=== PATIENT | female | born 1965 | race Caucasian/White ===

== ENCOUNTER 2017-11-09 11:07 | Inpatient (IN) | payer SELFPAY ==
[2017-11-09 11:52] LABS: #Basophils 0.1 thou/uL (0.0-0.2); #Eosinphils 0.2 thou/uL (0.0-0.7); #Lymphocytes 2.8 thou/uL (1.20-3.40); #Monocytes 0.7 thou/uL (0.11-0.59); #Neutrophils 9.8 thou/uL (1.40-6.50); %Basophils 0.6 % (0.0-1.0); %Eosinophils 1.6 % (0.0-10.0); %Lymphocytes 20.4 % (21.0-51.0); %Monocytes 5.2 % (0.0-10.0); %Neutrophils 72.2 % (42.0-75.0); Hemoglobin 14.7 g/dL (12.0-16.0); Mean Corpuscular HGB CONC 33.6 g/dL (32.0-36.0); Mean Corpuscular Hemoglobin 28.2 pg (27.0-31.0); Mean Corpuscular Volume 83.9 fl (81.0-99.0); Mean Platelet Volume 8.1 fL (7.4-10.4); Platelet Count 491 thou/uL (130-400); RBC Distribution Width 11.7 % (11.5-14.5); Red Blood Cell (RBC) Count 5.21 mill/uL (4.20-5.40); White Blood Cell (WBC) Count 13.6 thou/uL (4.8-10.8)
[2017-11-09 11:54] LABS: Bilirubin Negative (Negative); Blood, Urine Negative (Negative); Clarity CLEAR (Clear); Glucose, Urine (Dipstick) 500 mg/dL (Negative); Leukocyte Small (Negative); Nitrite Negative (Negative); Protein, Urine (Dipstick) 30 mg/dL (Neg-Trace); Specific Gravity, Urine 1.021 (1.002-1.036); Urobilinogen 0.2 mg/dL (0.2-1.0); pH, Urine 5.5 (5.0-9.0)
[2017-11-09 11:55] LABS: Bacteria/HPF None Seen HPF (None Seen); Pathc Cast-AUWi Flag 2.03 (0-2.49); RBC/HPF 0-3 HPF (0-3)
[2017-11-09 12:08] LABS: ALT (SGPT) 14 U/L (8-55); AST (SGOT) 11 U/L (5-34); Albumin 3.5 g/dL (3.5-5.0); Alkaline Phosphatase 97 U/L (40-150); Anion Gap 18 mmol/L (10-20); BUN (Urea Nitrogen) 32 mg/dL (9.8-20.1); Bilirubin, Total 0.3 mg/dL (0.2-1.2); Calc. Creatinine Clearance 0 mL/min (70-130); Carbon Dioxide 15 mmol/L (22-29); Chloride 101 mmol/L (98-107); Estimated GFR-MDRD 24; Globulin 3.5 g/dL (2.4-3.5); Glucose 376 mg/dL (70-105); Lipase 15 U/L (8-78); Potassium 3.8 mmol/L (3.5-5.1); Sodium 130 mmol/L (136-145)
[2017-11-09 12:21] LABS: Hyaline Casts/LPF 0-3 HYALINE CAST LPF (0-3 Hyaline)
[2017-11-09 12:22] LABS: Renal Epithelial 0-3 HPF (0-3); Transitional Epithelial 0-3 HPF (0-3)
[2017-11-09] MEDS ORDERED: Fentanyl 100 MCG/2 ML VIAL ONE ×2 (12:57→14:03)
[2017-11-09] MEDS ORDERED: Insulin Regular 300 UNITS/3 ML VIAL ONE (12:58)
--- NOTE | 2017-11-09 13:10 | CT ---
CT HEAD NONCONTRAST: Date: 11/09/17 HISTORY: Headache. FINDINGS: No comparison. There is no evidence of acute intracranial hemorrhage or infarct. The ventricles appear normal in siz e, shape, and position. There is no mass effect or shift of midline structures. Dense mucosal opacifi cation involves the right sphenoid sinus cell and posterior right ethmoid air cells. Some mucosal thi ckening is also evident within the superior portion of the partially visualized right maxillary sinus . Small amount of fluid layers within the dependent portion of the left sphenoid sinus cell. IMPRESSION: 1. No acute intracranial abnormalities are demonstrated on noncontrast CT head. 2. Paranasal sinusitis involving primarily the right sphenoid sinus and right ethmoid air cells. POS: [facility]
[2017-11-09 14:04] LABS: Base Excess-Venous -9.7 mmol/L (0 (+/- 2.5)); Bicarbonate (HCO3v) 18.2 mmol/L (1.0-85.0); CO2 Tension (PvCO2) 45.7 mmHg (41.0-51.0); Calcium, Ionized 1.14 mmol/L (1.12-1.32); Hemoglobin - Calc 17.7 g/dL (12.0-18.0); O2 Tension (PvO2) 27.6 mmHg (35.0-45.0); T. Carbon Dioxide 19.6 mmol/L (1.0-85.0); pH (Venous) 7.208 (7.35-7.45); vO2 Saturation-calc 39.6 % (94-98)
[2017-11-09] MEDS ORDERED: Ondansetron ODT 8 MG TAB ONE (14:16)
--- NOTE | 2017-11-09 14:38 | PDOC.FPRHP ---
- History of Present Illness Chief Complaint: N/V History of Present Illness: 52 y/o F with PMHx of DM2 presents with N/V, H/A and congestion. The patient reports that her congestion and headache have been going on for about 2 weeks and have been more R sided. The pain radiates to her R ear. She has noticed more sinus congestion. She started having N/V the past couple of days. She denies F/C. She normally checks her blood sugar and the fasting runs about 110- 150, but she reports that she hasn't been checking it as much since she's been sick, but she has still been taking her insulin. ED Course: The patient was evaluated in the ED by Dr. Dumas and was given 1g Rocephin, Novolin 10U, 1L NS, Fentanyl 100mcg. - Allergies/Adverse Reactions Allergies Allergy/AdvReac Type Severity Reaction Status Date / Time ciprofloxacin Allergy Severe Verified 11/09/17 15:27 Latex, Natural Rubber Allergy Severe Verified 11/09/17 15:27 levofloxacin [From Levaquin] Allergy Severe Verified 11/09/17 15:27 propofol Allergy Severe Verified 11/09/17 15:27 Quinolones Allergy Severe Verified 11/09/17 15:27 strawberry [[place]] Allergy Severe Verified 11/09/17 15:27 moxifloxacin [From Avelox] Allergy Verified 11/09/17 15:27 FIGS Allergy Severe Uncoded 06/17/13 16:46 - Home Medications Medication Instructions Recorded Confirmed Type Insulin NPH/Reg Insulin Hm 60 unit SC BID-AC 11/09/17 11/09/17 History [HumuLIN 70/30] Insulin Regular [HumuLIN R Vial] PRN 11/09/17 History Lisinopril 10 mg PO DAILY 11/09/17 11/09/17 History Metoprolol Tartrate 25 mg PO DAILY 11/09/17 11/09/17 History - History PMHx: 1. DM2 2. h/o DKA with diabetic coma 3. HTN PSHx: 1. Tracheostomy - has been removed FHx: DM2 in both parents Social: Denies tobacco, EtOH, or drug use - Review of Systems General: denies: fever/chills, weight/appetite/sleep changes Eyes: reports: eye pain (R eye due to sinus pressure). denies: vision changes ENT: reports: nasal congestion. denies: rhinorrhea Respiratory: denies: cough, shortness of breath Cardiovascular: denies: chest pain, edema Gastrointestinal: reports: nausea, vomiting, abdominal pain. denies: diarrhea Genitourinary: denies: dysuria, polyuria Skin: denies: rashes, lesions Musculoskeletal: denies: pain, tenderness Neurological: denies: numbness, weakness Psychological: denies: anxiety, depression - Vital signs BP: 110/68 HR: 77 RR: 17 Tmax: 97.5 Pox: 99% on RA Wt: 99.79kg - Physical Exam Constitutional: NAD, awake, alert and oriented, well developed HEENT: normocephalic and atraumatic, PERRLA, grossly normal vision, grossly normal hearing, normal nasal mucosa, MMM, oropharynx clear, other (sinus pain on R side) Neck: supple, FROM, no LAD Heart: RRR, normal S1/S2, no murmurs/rubs/gallops Lungs: CTAB, no respiratory distress, good air movement, no wheezing Abdomen: soft, non-tender, bowel sounds present Musculoskeletal: normal structure, normal tone Neurological: no focal deficit, CN II-XII intact Skin: good turgor, capillary refill <2 seconds Heme/Lymphatic: no unusual bruising or bleeding, no petechia Psychiatric: normal mood and affect, good judgment and insight FMR H&P: Results - Labs Result Diagrams: 11/09/17 11:33 11/09/17 11:33 Lab results: WBC 13.6 thou/uL (4.8-10.8) H 11/09/17 11:33 Hgb 14.7 g/dL (12.0-16.0) 11/09/17 11:33 Hct 43.7 % (36.0-47.0) 11/09/17 11:33 MCV 83.9 fl (81.0-99.0) 11/09/17 11:33 Plt Count 491 thou/uL (130-400) H 11/09/17 11:33 Neutrophils % 72.2 % (42.0-75.0) 11/09/17 11:33 VBG pCO2 45.7 mmHg (41.0-51.0) 11/09/17 14:00 VBG pO2 27.6 mmHg (35.0-45.0) L 11/09/17 14:00 Sodium 130 mmol/L (136-145) L 11/09/17 11:33 Potassium 3.8 mmol/L (3.5-5.1) 11/09/17 11:33 Chloride 101 mmol/L (98-107) 11/09/17 11:33 Carbon Dioxide 15 mmol/L (22-29) L 11/09/17 11:33 BUN 32 mg/dL (9.8-20.1) H 11/09/17 11:33 Creatinine 2.13 mg/dL (0.6-1.1) H 11/09/17 11:33 Glucose 376 mg/dL (70-105) H 11/09/17 11:33 Calcium 9.0 mg/dL (7.8-10.44) 11/09/17 11:33 Total Bilirubin 0.3 mg/dL (0.2-1.2) 11/09/17 11:33 AST 11 U/L (5-34) 11/09/17 11:33 ALT 14 U/L (8-55) 11/09/17 11:33 Alkaline Phosphatase 97 U/L (40-150) 11/09/17 11:33 Serum Total Protein 7.0 g/dL (6.0-8.3) 11/09/17 11:33 Albumin 3.5 g/dL (3.5-5.0) 11/09/17 11:33 Lipase 15 U/L (8-78) 11/09/17 11:33 Urine Ketones Negative mg/dL (Negative) 11/09/17 11:20 Urine Blood Negative (Negative) 11/09/17 11:20 Urine Nitrite Negative (Negative) 11/09/17 11:20 Ur Leukocyte Esterase Small (Negative) H 11/09/17 11:20 Urine RBC 0-3 HPF (0-3) 11/09/17 11:20 Urine WBC 11-20 HPF (0-3) H 11/09/17 11:20 Ur Squamous Epith Cells 11-20 HPF (0-3) H 11/09/17 11:20 Urine Bacteria None Seen HPF (None Seen) 11/09/17 11:20 - Radiology Interpretation CT scan - head Status: report reviewed by me Additional comment: R sided sinusitis FMR H&P: A/P - Problem List (1) Hyperosmolar non-ketotic state in patient with type 2 diabetes mellitus Current Visit: Yes Status: Acute Code(s): E11.01 - TYPE 2 DIABETES MELLITUS WITH HYPEROSMOLARITY WITH COMA (2) Sinusitis Current Visit: Yes Status: Acute Code(s): J32.9 - CHRONIC SINUSITIS, UNSPECIFIED Qualifiers: Sinusitis location: unspecified location Chronicity: acute Recurrence: non-recurrent Qualified Code(s): J01.90 - Acute sinusitis, unspecified (3) Lactic acidosis Current Visit: Yes Status: Acute Code(s): E87.2 - ACIDOSIS (4) Type 2 diabetes mellitus Current Visit: Yes Status: Acute Qualifiers: Diabetes mellitus terminal manager insulin use: with terminal manager use Diabetes mellitus complication status: with unspecified complications Qualified Code(s) : E11.8 - Type 2 diabetes mellitus with unspecified complications; Z79.4 - longterm (current) use of insulin; Z79.4 - longterm (current) use of insulin; Z79.4 - longterm (current) use of insulin; Z79.4 - terminal worker (current) use of insulin (5) MADI (acute kidney injury) Current Visit: Yes Status: Acute Code(s): N17.9 - ACUTE KIDNEY FAILURE, UNSPECIFIED (6) CKD (chronic kidney disease) stage 3, GFR 30-59 ml/min Current Visit: Yes Status: Acute Code(s): N18.3 - CHRONIC KIDNEY DISEASE, STAGE 3 (MODERATE) (7) Leukocytosis Current Visit: Yes Status: Acute Code(s): D72.829 - ELEVATED WHITE BLOOD CELL COUNT, UNSPECIFIED Qualifiers: Leukocytosis type: unspecified Qualified Code(s): D72.829 - Elevated white blood cell count, unspecified (8) Increased anion gap metabolic acidosis Current Visit: Yes Status: Acute Code(s): E87.2 - ACIDOSIS - Plan Mild HHS Patient has elevated blood sugar with anion gap and MADI, but this could be confounded by her lactic acidosis. She is s/p 1L NS in the ED as well as 10U insulin. Ketones were negative -NS bolus -q2h accuchecks -q4h BMP -Insulin pending repeat BMP -supplement KCl as needed Anion Gap Metabolic Acidosis, likely 2/2 lactic acidosis The patient appears to have sinusitis on CT scan. Will check ESR and CRP as well. Lactate elevated at 2.6. pH 7.2 -NS bolus -Trend lactate -Monitor closely -UCx, BCx Acute Sinusitis s/p 1 dose of Rocephin in the ED -Rocephin day 1, will continue -NS bolus followed by NS @ 140 -ESR and CRP to ensure no autoimmune process with the severe headache -Blood cx MADI on CKDIII s/p 1L NS in the ED -Will bolus with another 2 L NS followed by maint of NS @ 140 -Monitor DM2 -A1c -Continue home meds once stable VTE ppx: SCD's Code Status: Full Disposition/LOS: Admit to medical Length of stay likely greater than 2 days FMR H&P: Upper Level - Plan Date/Time: 11/09/17 3077 ISeda, PY3, have evaluated this patient and agree with findings/plan as outlined by cad intern resident. Pertinent changes/additions are listed here. This is a 52 yo F w/ PMH of DM2, Angioedema, presents w/ 2 week history of headache, and sinus pain, then 3 days ago she started having a right sided headache, which is throbbing associated with sinus drainage, that has been constant. No vision change, no hearing changes. She has tried ibuprofen and tylenol without relief. She typically doesn't get headaches. Nothing seems to make it worse or better. + non-productive cough. No urinary or bowel changes. PE: AOX4, in no acute distress. HEENT: + sinus pain R, TM not bulging or erythematous. + PND CV: RRR. No murmurs. Resp: CTA bilaterally Abdomen: Soft non-tender to palpation. No rebound, no guarding. Ext: No edema bilaterally. A/P: 1) Mild DKA - Patient has just received 10U of insulin in the ER and starting her 1st 2L bolus of NS. Will repeat another bolus of fluid and give 20meq of potassium. F/u with BMP once completed. 2) MADI on CKD - Fluids. F/u with BMP. 3) Acute Sinusitis - S/p Rocephin. Will continue rocephin and f/u with urine cx , blood cx. 4) Headache likely 2/2 #3. Will also add CRP and ESR to ensure no autoimmune process. 5) Lactic acidosis - repeat lactic acid in 4 hours after starting fluids likely contributing to mild anion gap. 6) Hx of hypomagnesium - will check Mag.
[2017-11-09 14:43] LABS: Lactic Acid 2.6 mmol/L (0.5-2.2)
[2017-11-09 15:28] VITALS: BMI 36.8
[2017-11-09] MEDS ORDERED: Dextrose 50% Abboject 50 ML SYRINGE SLOW IVP PRN (15:33)
[2017-11-09] MEDS ORDERED: Dextrose 5% in Water 1,000 ML IV PRN (15:33)
[2017-11-09 15:50] LABS: Hemoglobin A1c 13.2 % (4.0-6.0)
[2017-11-09] MEDS ORDERED: Morphine 4 MG/ML VIAL SLOW IVP PRN (16:30)
[2017-11-09] MEDS: Sodium Chloride 0.9% 1,000 ML IV SCH ×4 (17:09→23:22)
[2017-11-09 17:18] LABS: Anion Gap 14 mmol/L (10-20); BUN (Urea Nitrogen) 31 mg/dL (9.8-20.1); Calc. Creatinine Clearance 57 mL/min (70-130); Calcium 8.1 mg/dL (7.8-10.44); Carbon Dioxide 15 mmol/L (22-29); Chloride 108 mmol/L (98-107); Estimated GFR-MDRD 30; Glucose 168 mg/dL (70-105); Potassium 3.7 mmol/L (3.5-5.1); Sodium 133 mmol/L (136-145)
--- NOTE | 2017-11-09 17:49 | RAD ---
PA AND LATERAL CHEST X-RAY 11/09/17 HISTORY: DKA. Headache, nausea and vomiting. COMPARISON: None available. FINDINGS: The cardiac silhouette and pulmonary vasculature are within normal limits. The lungs are clear. osseo us structures are intact. Minimal vascular calcifications seen in the visualized abdominal aorta. IMPRESSION: No acute cardiopulmonary process. POS: [facility]
--- NOTE | 2017-11-09 18:38 | PDOC.EVN ---
Event Note - Event Note Event Note: Re-evaluated patient's headache. Headache has resolved after medications in the ER. She states that she hasn't had any more nausea, and able to give a better history now as not current vomiting. States that she is very sensitive to medications, and has nausea/vomiting with meds. She feels like she has a sinus headache, as pain over maxillary and ethmoid sinuses. She has no pain over temporal arteries. She denies any vision changes, hearing changes. Discussed differential diagnosis with patient, including temporal arteritis, however, this is very unlikely after re-evaluation of patient, and with CT scan consistent with R sinusitis, which is where her pain is, and her pain has resolved, we will continue antibiotics for this. She will notify us if headache returns or any other concerns.
[2017-11-09 18:44] LABS: Anion Gap 15 mmol/L (10-20); BUN (Urea Nitrogen) 29 mg/dL (9.8-20.1); Calc. Creatinine Clearance 61 mL/min (70-130); Calcium 8.2 mg/dL (7.8-10.44); Carbon Dioxide 14 mmol/L (22-29); Chloride 109 mmol/L (98-107); Estimated GFR-MDRD 33; Glucose 139 mg/dL (70-105); Potassium 3.9 mmol/L (3.5-5.1); Sodium 134 mmol/L (136-145)
[2017-11-09 18:50] LABS: Lactic Acid 1.9 mmol/L (0.5-2.2)
[2017-11-09] MEDS: guaiFENesin ER 600 MG TAB PO SCH (20:28)
[2017-11-09 21:14] LABS: Lactic Acid 1.8 mmol/L (0.5-2.2)
[2017-11-09 21:17] LABS: Anion Gap 15 mmol/L (10-20); BUN (Urea Nitrogen) 28 mg/dL (9.8-20.1); Calc. Creatinine Clearance 61 mL/min (70-130); Calcium 8.5 mg/dL (7.8-10.44); Carbon Dioxide 17 mmol/L (22-29); Chloride 108 mmol/L (98-107); Estimated GFR-MDRD 33; Glucose 218 mg/dL (70-105); Sodium 136 mmol/L (136-145)
[2017-11-09] MEDS ORDERED: HumaLOG 300 UNITS/3 ML VIAL SC PRN ×2 (21:23)
[2017-11-09] MEDS ORDERED: Insulin NPH/Reg Insulin Hm 300 UNITS/3 ML VIAL SC SCH ×2 (21:30→22:45)
[2017-11-09 22:40] LABS: Bilirubin Negative (Negative); Blood, Urine Negative (Negative); Clarity CLEAR (Clear); Glucose, Urine (Dipstick) 100 mg/dL (Negative); Leukocyte Negative (Negative); Nitrite Negative (Negative); Protein, Urine (Dipstick) Trace mg/dL (Neg-Trace); Specific Gravity, Urine 1.013 (1.002-1.036); Urobilinogen 0.2 mg/dL (0.2-1.0); pH, Urine 5.5 (5.0-9.0)
[2017-11-09 22:42] LABS: Bacteria/HPF None Seen HPF (None Seen); Hyaline Casts/LPF 4-6 HYALINE CAST LPF (0-3 Hyaline); Pathc Cast-AUWi Flag 1.16 (0-2.49); RBC/HPF 0-3 HPF (0-3)
[2017-11-09 23:00] LABS: Renal Epithelial 0-3 HPF (0-3)
[2017-11-09] MEDS: Fentanyl 100 MCG/2 ML VIAL SLOW IVP PRN (23:20)
[2017-11-09] MEDS: Ondansetron HCl/PF 4 MG/2 ML Vial IVP PRN (23:40)
[2017-11-10 00:47] LABS: Anion Gap 10 mmol/L (10-20); BUN (Urea Nitrogen) 25 mg/dL (9.8-20.1); Calc. Creatinine Clearance 72 mL/min (70-130); Calcium 7.7 mg/dL (7.8-10.44); Carbon Dioxide 17 mmol/L (22-29); Chloride 112 mmol/L (98-107); Estimated GFR-MDRD 40; Glucose 197 mg/dL (70-105); Potassium 3.7 mmol/L (3.5-5.1); Sodium 135 mmol/L (136-145)
[2017-11-10 03:28] LABS: Anion Gap 8 mmol/L (10-20); BUN (Urea Nitrogen) 22 mg/dL (9.8-20.1); Calc. Creatinine Clearance 80 mL/min (70-130); Calcium 7.8 mg/dL (7.8-10.44); Carbon Dioxide 17 mmol/L (22-29); Chloride 113 mmol/L (98-107); Estimated GFR-MDRD 45; Glucose 170 mg/dL (70-105); Potassium 3.9 mmol/L (3.5-5.1); Sodium 134 mmol/L (136-145)
[2017-11-10 03:29] LABS: #Basophils 0.1 thou/uL (0.0-0.2); #Eosinphils 0.3 thou/uL (0.0-0.7); #Monocytes 0.7 thou/uL (0.11-0.59); #Neutrophils 8.8 thou/uL (1.40-6.50); %Basophils 0.6 % (0.0-1.0); %Eosinophils 2.8 % (0.0-10.0); %Lymphocytes 16.9 % (21.0-51.0); %Monocytes 5.6 % (0.0-10.0); %Neutrophils 74.1 % (42.0-75.0); Hemoglobin 12.7 g/dL (12.0-16.0); Mean Corpuscular HGB CONC 35.3 g/dL (32.0-36.0); Mean Corpuscular Hemoglobin 29.5 pg (27.0-31.0); Mean Corpuscular Volume 83.4 fl (81.0-99.0); Platelet Count 357 thou/uL (130-400); RBC Distribution Width 11.6 % (11.5-14.5); Red Blood Cell (RBC) Count 4.32 mill/uL (4.20-5.40); White Blood Cell (WBC) Count 11.9 thou/uL (4.8-10.8)
[2017-11-10] MEDS: Sodium Chloride 0.9% 1,000 ML IV SCH ×3 (04:22→22:02)
[2017-11-10] MEDS: Fentanyl 100 MCG/2 ML VIAL SLOW IVP PRN (04:23)
[2017-11-10 06:14] LABS: Anion Gap 11 mmol/L (10-20); BUN (Urea Nitrogen) 22 mg/dL (9.8-20.1); Calc. Creatinine Clearance 84 mL/min (70-130); Calcium 7.8 mg/dL (7.8-10.44); Carbon Dioxide 17 mmol/L (22-29); Chloride 113 mmol/L (98-107); Estimated GFR-MDRD 47; Glucose 136 mg/dL (70-105); Potassium 3.9 mmol/L (3.5-5.1); Sodium 137 mmol/L (136-145)
--- NOTE | 2017-11-10 07:59 | PDOC.FM ---
- Subjective Subjective: The patient reports that her headache has been better today and well controlled with the pain medication. She still feels congestion on the R side just behind her eye and her R cheek and R forehead. She denies any R orthodoxy pain. She is tolerating PO, but still reports some N/V. - Objective MAR Reviewed: Yes Vital Signs & Weight: Vital Signs (12 hours) Temp Pulse Resp BP Pulse Ox 11/10/17 03:46 98.9 F 71 18 118/70 99 11/10/17 00:00 97.7 F 71 18 104/67 97 11/09/17 20:00 98.6 F 73 16 115/84 99 Weight Weight 97.477 kg I&O: 11/09/17 11/10/17 11/11/17 06:59 06:59 06:59 Intake Total 1600 Balance 1600 Result Diagrams: 11/10/17 03:02 11/10/17 05:50 <Nimco Stahl - Last Filed: 11/10/17 07:58> - Objective Vital Signs & Weight: Vital Signs (12 hours) Temp Pulse Resp BP Pulse Ox 11/10/17 08:00 98.7 F 71 18 117/72 97 11/10/17 03:46 98.9 F 71 18 118/70 99 11/10/17 00:00 97.7 F 71 18 104/67 97 Weight Weight 214 lb 14.4 oz I&O: 11/09/17 11/10/17 11/11/17 06:59 06:59 06:59 Intake Total 1600 Balance 1600 Result Diagrams: 11/10/17 03:02 11/10/17 05:50 <Gerry Josue - Last Filed: 11/10/17 11:06> Phys Exam - Physical Examination Constitutional: NAD HEENT: moist MMs tender to palpation over R maxillary sinus Respiratory: no wheezing, no rales, no rhonchi, clear to auscultation bilateral Cardiovascular: RRR, no significant murmur, no rub Gastrointestinal: soft, non-tender, no distention, positive bowel sounds Musculoskeletal: no edema, pulses present Neurological: non-focal, moves all 4 limbs Psychiatric: normal affect, A&O x 3 Skin: normal turgor, cap refill <2 seconds <Nimco Stahl - Last Filed: 11/10/17 07:58> Dx/Plan (1) Sinusitis Code(s): J32.9 - CHRONIC SINUSITIS, UNSPECIFIED Status: Acute QualifierTitle: Sinusitis location: unspecified location Chronicity: acute Recurrence: non-recurrent Qualified Code(s): J01.90 - Acute sinusitis , unspecified (2) Hyperosmolar non-ketotic state in patient with type 2 diabetes mellitus Code(s): E11.01 - TYPE 2 DIABETES MELLITUS WITH HYPEROSMOLARITY WITH COMA Status: Ruled-out (3) Lactic acidosis Code(s): E87.2 - ACIDOSIS Status: Acute (4) Type 2 diabetes mellitus Status: Acute QualifierTitle: Diabetes mellitus terminal clerk insulin use: with terminal clerk use Diabetes mellitus complication status: with unspecified complications Qualified Code(s): E11.8 - Type 2 diabetes mellitus with unspecified complications; Z79.4 - nursing home (current) use of insulin; Z79.4 - nursing home ( current) use of insulin; Z79.4 - termite control representative (current) use of insulin; Z79.4 - nursing home (current) use of insulin (5) MADI (acute kidney injury) Code(s): N17.9 - ACUTE KIDNEY FAILURE, UNSPECIFIED Status: Acute (6) CKD (chronic kidney disease) stage 3, GFR 30-59 ml/min Code(s): N18.3 - CHRONIC KIDNEY DISEASE, STAGE 3 (MODERATE) Status: Acute (7) Leukocytosis Code(s): D72.829 - ELEVATED WHITE BLOOD CELL COUNT, UNSPECIFIED Status: Acute QualifierTitle: Leukocytosis type: unspecified Qualified Code(s): D72.829 - Elevated white blood cell count, unspecified (8) Increased anion gap metabolic acidosis Code(s): E87.2 - ACIDOSIS Status: Acute - Plan Plan: Anion Gap Metabolic Acidosis, likely 2/2 lactic acidosis The patient appears to have sinusitis on CT scan. Lactate elevated at 2.6. pH 7.2. s/p fluids. Lactate has trended down. -Monitor closely -UCx, BCx Acute Sinusitis s/p 1 dose of Rocephin in the ED. ESR and CRP were elevated, but the patient has no pain over the temples that would be consistent with temporal arteritis. -Rocephin day 2, will continue -NS @ 140 -Blood cx MADI on CKDIII s/p fluids, improving -NS @ 140 -Monitor DM2 Patient has elevated blood sugar with anion gap and MADI, but this could be confounded by her lactic acidosis. She is s/p 1L NS in the ED as well as 10U insulin. Ketones were negative. A1c was 13.2 -Start 30 U 70/30 this AM and will 50 U this PM as well as SSI -Accuchecks q2h -CC diet <Nimco Stahl - Last Filed: 11/10/17 07:58> Attending Addendum - Attending Addendum Date/Time: 11/10/17 1105 I personally evaluated the patient and discussed the management with Dr. Nimco Stahl I agree with the History, Examination, Assessment and Plan documented above with any addition or exceptions noted below. CT scan consistent with acute R sided sinusitis. Will treat with IV abx. Treatment for pain relief. <Gerry Josue - Last Filed: 11/10/17 11:06>
[2017-11-10] MEDS: guaiFENesin ER 600 MG TAB PO SCH ×2 (08:49→22:00)
[2017-11-10] MEDS: Ondansetron HCl/PF 4 MG/2 ML Vial IVP PRN (08:52)
[2017-11-10] MEDS: Insulin NPH/Reg Insulin Hm 300 UNITS/3 ML VIAL SC SCH (08:54)
[2017-11-10] MEDS: Metoprolol Tartrate 25 MG TAB PO SCH (08:55)
[2017-11-10] MEDS ORDERED: Lisinopril 10 MG TAB PO SCH (09:00)
[2017-11-10] MEDS: Ketorolac Tromethamine 30 MG/ML VIAL IVP PRN ×2 (10:03→17:41)
[2017-11-10] MEDS ORDERED: Oxymetazoline HCl 0.05% ( 15 ML ) NASAL PRN (11:01)
[2017-11-10] MEDS: Ampicillin/Sulbactam 3 GM in Sodium Chloride 0.9% 100 ML IVPB SCH ×3 (13:31→23:20)
[2017-11-10] MEDS ORDERED: cefTRIAXone\\ROCEPHIN 1 GM, Syringe 0.4 ML in Sterile Water 9.6 ML SLOW IVP SCH (14:00)
[2017-11-10] MEDS ORDERED: cefTRIAXone\\ROCEPHIN 1 GM in Sodium Chloride 0.9% 100 ML IVPB SCH (14:00)
[2017-11-10] MEDS ORDERED: Insulin NPH/Reg Insulin Hm 300 UNITS/3 ML VIAL SC SCH ×2 (17:30→22:30)
[2017-11-11] MEDS: Ketorolac Tromethamine 30 MG/ML VIAL IVP PRN ×2 (00:44→07:21)
[2017-11-11] MEDS: Ampicillin/Sulbactam 3 GM in Sodium Chloride 0.9% 100 ML IVPB SCH (05:43)
[2017-11-11] MEDS: Metoprolol Tartrate 25 MG TAB PO SCH (07:29)
[2017-11-11] MEDS: guaiFENesin ER 600 MG TAB PO SCH (07:29)
[2017-11-11] MEDS: Insulin NPH/Reg Insulin Hm 300 UNITS/3 ML VIAL SC SCH (07:30)
[2017-11-11 07:36] VITALS: BP 133/63; TEMP 98.1
--- NOTE | 2017-11-11 08:59 | PDOC.FM ---
- Subjective Subjective: Patient doing well this AM. No significant overnight events. Patient states her facial pain and headache are much improved from admission. She is feeling a lot better and was able to tolerate dinner. Discussed importance of taking insulin at length to avoid hyperglycemia and DKA. - Objective MAR Reviewed: Yes Vital Signs & Weight: Vital Signs (12 hours) Temp Pulse Resp BP Pulse Ox 11/11/17 07:52 98.1 F 67 16 11/11/17 07:36 98.1 F 67 16 133/63 98 11/11/17 05:39 98.3 F 74 18 128/82 98 11/11/17 00:00 98.3 F 71 18 125/81 96 Weight Weight 97.477 kg I&O: 11/10/17 11/11/17 11/12/17 06:59 06:59 06:59 Intake Total 1600 2860 Output Total 500 Balance 1600 2360 Result Diagrams: 11/10/17 03:02 11/10/17 05:50 EKG Reviewed by me: No Radiology Reviewed by me: No <Heaven Berger - Last Filed: 11/11/17 08:57> - Objective Vital Signs & Weight: Vital Signs (12 hours) Temp Pulse Resp BP Pulse Ox 11/11/17 07:52 98.1 F 67 16 11/11/17 07:36 98.1 F 67 16 133/63 98 Weight Weight 97.477 kg I&O: 11/10/17 11/11/17 11/12/17 06:59 06:59 06:59 Intake Total 1600 2860 Output Total 500 Balance 1600 2360 Result Diagrams: 11/10/17 03:02 11/10/17 05:50 <Homa Watson - Last Filed: 11/11/17 19:25> Phys Exam - Physical Examination Constitutional: NAD HEENT: moist MMs Mildly tender to palpation in maxillary regions; improved from prior exams Neck: supple Respiratory: clear to auscultation bilateral Cardiovascular: RRR, no significant murmur Gastrointestinal: soft, non-tender, no distention, positive bowel sounds Musculoskeletal: no edema Neurological: non-focal Psychiatric: normal affect Skin: no rash, normal turgor, cap refill <2 seconds <Heaven Berger - Last Filed: 11/11/17 08:57> Dx/Plan (1) Increased anion gap metabolic acidosis Code(s): E87.2 - ACIDOSIS Status: Acute (2) Sinusitis Code(s): J32.9 - CHRONIC SINUSITIS, UNSPECIFIED Status: Acute QualifierTitle: Sinusitis location: unspecified location Chronicity: acute Recurrence: non-recurrent Qualified Code(s): J01.90 - Acute sinusitis , unspecified (3) MADI (acute kidney injury) Code(s): N17.9 - ACUTE KIDNEY FAILURE, UNSPECIFIED Status: Acute (4) Lactic acidosis Code(s): E87.2 - ACIDOSIS Status: Acute (5) Type 2 diabetes mellitus Status: Chronic QualifierTitle: Diabetes mellitus local company intermodal truck driver insulin use: with local company intermodal truck driver use Diabetes mellitus complication status: with unspecified complications Qualified Code(s): E11.8 - Type 2 diabetes mellitus with unspecified complications; Z79.4 - intermediate project manager (current) use of insulin; Z79.4 - halfway ( current) use of insulin; Z79.4 - intermediate project manager (current) use of insulin; Z79.4 - halfway (current) use of insulin - Plan Plan: Anion Gap Metabolic Acidosis, likely 2/2 lactic acidosis (resolved) The patient appears to have sinusitis on CT scan. Lactate elevated at 2.6, which has since normalized. pH 7.2. s/p fluids. -Monitor closely -UCx, BCx pending (negative to date) -Improved after treatment with abx for sinusitis Acute Sinusitis s/p 1 dose of Rocephin in the ED. ESR and CRP were elevated, but the patient has no pain over the temples that would be consistent with temporal arteritis. -Rocephin switched to unasyn yesterday. Will transition to PO antibiotics in preparation for discharge home -D/C IVF -Blood cx pending; negative growth to date MADI on CKDIII s/p fluids, improving DM2, Uncontrolled Patient has elevated blood sugar with anion gap and MADI, but this could be confounded by her lactic acidosis. She is s/p 1L NS in the ED as well as 10U insulin. -Ketones were negative. A1c was 13.2 -Start 30 U 70/30AM and 50 U PM as well as SSI; patient refused insulin all of yesterday. She did take 30 units last night. Patient states she is compliant with insulin regimen at home, but A1c 13.2. Had lengthy discussion about good glucose control to prevent diabetic complications. Patient does not have PCP here in [place]. She states she will go back to PCP in [place] or establish with [facility] until she gets insurance. -Accuchecks q2h -CC diet -Patient reportedly takes 60 Units of 70/30 in AM and PM, as well as Regular insulin sliding scale at home Dipso: Patient being transitioned to PO antibiotics. Anticipate d/c home today. <Heaven Berger - Last Filed: 11/11/17 08:57> Attending Addendum - Attending Addendum Date/Time: 11/11/171924 I personally evaluated the patient and discussed the management with Dr. Berger. I agree with the History, Examination, Assessment and Plan documented above with any addition or exceptions noted below. The patient is feeling much better. She will be discharged with oral antibiotics. <Homa Watson - Last Filed: 11/11/17 19:25>
[2017-11-11] MEDS ORDERED: Amoxicillin/Potassium Clav 875 MG TAB PO SCH (09:00)
[2017-11-11] MEDS: Sodium Chloride 0.9% 1,000 ML IV SCH (09:11)
--- NOTE | 2017-11-12 03:11 | DIS-2 ---
DATE OF ADMISSION: 11/09/2017 DATE OF DISCHARGE: 11/11/2017 ADMITTING ATTENDING: Gerry Josue M.D. DISCHARGE ATTENDING: Homa Watson M.D. RESIDENT: Heaven Berger D.O. CONSULTS: 1. Dietitian. 2. Case management. 3. Walking program. PROCEDURES: 1. Brain CT showed no acute intracranial abnormalities, demonstrated on noncontrast CT of the head, paranasal sinusitis involving primarily the right sphenoid sinus and right ethmoid air cells. 2. Chest x-ray, no acute cardiopulmonary process. PRIMARY DIAGNOSES: 1. Acute sinusitis. 2. Hyperglycemia. 3. Anion gap metabolic acidosis likely secondary to elevated lactate from infection. 4. Acute kidney injury on chronic kidney disease stage 3. 5. Uncontrolled diabetes mellitus type 2. 6. Asymptomatic bacteriuria. DISCHARGE MEDICATIONS: 1. Tylenol with Codeine No. 3 300/30 mg tablet, take 1 tablet as needed every 6 hours for pain, 15 t ablets given. 2. Amoxicillin/potassium clavulanic acid or Augmentin 875 mg oral every 12 hours for a total of 5 da ys. 3. Mucinex 1200 mg oral every 12 hours as needed. 4. Zofran 4 mg oral every 6 hours as needed for nausea. 5. Oxymetazoline hydrochloride 0.05% nasal spray. 6. Lisinopril 10 mg oral daily. 7. Humulin 70/30, the patient is to take 60 units subcutaneous twice daily before meals. 8. Metoprolol tartrate 25 mg oral daily. 9. Humulin Regular, the patient is to take this on a sliding scale before meals and at bedtime as ne eded. DISCONTINUED MEDICATIONS: None. HISTORY OF PRESENT ILLNESS/HOSPITAL COURSE: This is a 52-year-old female with past medical history o f diabetes mellitus that presented to the emergency department with nausea, vomiting, severe headache , and congestion. She reported that her congestion, headache had been going on for about 2 weeks and appears to be more right sided. The pain did radiate to her right ear and she has noticed more sinu s congestion. She started having nausea and vomiting a couple days prior to admission. She does sta te that she checks her blood sugar regularly and that her fasting sugar runs about 110-150, but she d oes report that she has not been checking as much since she has been sick. She does state that she i s compliant with her insulin at home. The patient has not established with a primary care physician here in [facility] [place]. She was following with her primary care physician in [place], but has not seen him in several months. In the emergency department, she was evaluated by Dr. Dumas and was given 1 gram of Rocephin, Novolin 10 units, 1 liter of normal saline, and fentanyl 100 mcg. The patient remained stable throughout the course of her hospital stay. She did have lactic acidosis that resolved with fluid resuscitation and antibiotics. The patient was noted to be hyperglycemic w ithout any evidence of DKA. Her blood sugar responded well to 10 units of Novolin. Her ketones were negative. The patient was started on a lower dose of her home insulin regimen; however, she had bee n noncompliant while in the hospital and was refusing her insulin as she stated she was not eating, n ot wanted to drop too low. Her blood sugars have been running in the upper 200s-300s on a daily basi s. Her hemoglobin A1c was noted to be upwards of 13 indicating a lack of compliance with medication regimen. The patient's headache was attributed to acute sinusitis, which was evident on CT. She was given Leonid ephin on day #1 and transitioned to Unasyn. The patient did respond well and her symptoms improved a fter fluids and antibiotics. On the day of discharge, she was noted to be almost completely headache free. She was transitioned to Augmentin for outpatient treatment. Of note, ESR and CRP were elevat ed as there was initial concern for potential temporal arteritis. However, the patient's symptoms ar e consistent with temporal arteritis as she is not having any temporal pain or other symptoms consist ent with the diagnosis. Her symptoms are most consistent with sinusitis as she is having facial pres sure, particularly in the maxillary region on the right. The patient was counseled on the importance of compliance with diabetic medications to prevent DKA or other associated diabetic illnesses. She states that she takes 6 units of 70/30 at home b.i.d. on a regular basis. It was highly encouraged that the patient establish with [facility] as she does not have insurance at this time. Additionally, she can follow with her primary care physician in [facility] and that proves to be easier. The patient states she should have insurance here within the next couple of months. At that time, she is welcome to establish with [facility] for further rj monserrat. DISPOSITION: Stable. DISCHARGE INSTRUCTIONS: 1. Location: Home. 2. Diet: Heart healthy, consistent carb. 3. Activity: No restrictions. 4. Followup: The patient is to follow up with her primary care physician in [place] or with [facility] within the next 7 days to ensure resolution/improvement in symptoms. The information for [facility] was provided to the patient upon discharge. Additionally, once the patient is able to obt [facility] insurance, she can follow with [facility]. This was discussed with the patient at [facility]. The patient is to continue Augmentin for 5 days postdischarge. The patient was in understanding of the plan and agreeable.
== END 2017-11-11 12:43 | disposition home or self-care (01) | DRG 683 ==
LOC: ERS 11:07 → T4-B 12:32
PROVIDERS: ADMIT Family Medicine; ATTEND Family Medicine
DX: N17.9 Acute kidney failure, unspecified (principal); E87.2 Acidosis; E11.22 Type 2 diabetes mellitus with diabetic chronic kidney disease; E11.65 Type 2 diabetes mellitus with hyperglycemia; N18.3 Chronic kidney disease, stage 3 (moderate); J01.90 Acute sinusitis, unspecified; I12.9 Hypertensive chronic kidney disease with stage 1 through stage 4 chronic kidney disease, or unspecified chronic kidney disease; R82.71 Bacteriuria; Z91.14 Patient's other noncompliance with medication regimen; Z79.4 Long term (current) use of insulin; Z88.1 Allergy status to other antibiotic agents; Z91.040 Latex allergy status; Z88.8 Allergy status to other drugs, medicaments and biological substances
CPT/HCPCS: 36415; 36416; 70450; 71046; 80048; 80053; 81003; 81015; 82010; 82330; 82803; 83036; 83605; 83690; 83735; 85025; 85652; 86140; 87040; 87077; 87086; 87186; 96361; 96374; 96375; A4216; J0295; J0696; J1815; J1885; J2270; J2405; J3010; J7050

== ENCOUNTER 2017-11-19 20:47 | Emergency (ER) | payer SELFPAY ==
[2017-11-19] MEDS ORDERED: Metoclopramide 10 MG/10 ML UDCUP ONE ×2 (22:54)
[2017-11-19] MEDS ORDERED: methylPREDNISolone Sod Succ/PF 125 MG/2 ML VIAL ONE (22:54)
[2017-11-19] MEDS ORDERED: Ketorolac Tromethamine 30 MG/ML VIAL ONE (22:54)
[2017-11-19] MEDS ORDERED: Metoclopramide HCl 10 MG TAB ONE (23:06)
[2017-11-19 23:15] LABS: #Basophils 0.1 thou/uL (0.0-0.2); #Eosinphils 0.5 thou/uL (0.0-0.7); #Lymphocytes 3.3 thou/uL (1.20-3.40); #Monocytes 0.7 thou/uL (0.11-0.59); #Neutrophils 9.1 thou/uL (1.40-6.50); %Basophils 0.9 % (0.0-1.0); %Eosinophils 3.5 % (0.0-10.0); %Monocytes 5.2 % (0.0-10.0); %Neutrophils 66.4 % (42.0-75.0); Hemoglobin 13.8 g/dL (12.0-16.0); Mean Corpuscular HGB CONC 33.6 g/dL (32.0-36.0); Mean Corpuscular Hemoglobin 28.6 pg (27.0-31.0); Mean Platelet Volume 7.4 fL (7.4-10.4); Platelet Count 465 thou/uL (130-400); RBC Distribution Width 11.9 % (11.5-14.5); Red Blood Cell (RBC) Count 4.84 mill/uL (4.20-5.40); White Blood Cell (WBC) Count 13.6 thou/uL (4.8-10.8)
--- NOTE | 2017-11-19 23:20 | CT ---
CT OF THE PARANASAL SINUSES: 11/19/17 INDICATION: Right sided facial pain. FINDINGS: There is moderate mucosal thickening within the right maxillary sinus. There is moderate to severe mu cosal thickening in the right ethmoid air ells and right sphenoid sinus. There is mild to moderate mu cosal thickening in the left sphenoid air cell. Frontal sinuses are clear. Left ethmoid air cell is r elatively clear. Left maxillary sinus is clear. No acute osseous abnormality is evident. There are pr ominent dental and periodontal disease involving multiple teeth within the maxilla. There is small ma stoid effusion seen on the left. The visualized intracranial contents are unremarkable. The visualize d parotid and orbits appear within normal limits. IMPRESSION: 1. Moderate paranasal sinus disease as above. 2. Extensive dental disease involving the maxilla. Dental referral is recommended. 3. Small left mastoid effusion. POS: [facility]
== END 2017-11-20 01:00 | disposition home or self-care (01) ==
LOC: ERS 20:47
DX: J01.90 Acute sinusitis, unspecified (principal); K02.9 Dental caries, unspecified; E11.9 Type 2 diabetes mellitus without complications; Z79.899 Other long term (current) drug therapy; Z79.4 Long term (current) use of insulin
CPT/HCPCS: 85025; 85652; 86140; 96374; 96375; J1885; J2930